=== PATIENT | female | born 1995 | race Hispanic/Latino ===

== ENCOUNTER 2024-08-01 12:21 | Emergency (ER) | payer OTHER ==
[~2024-08-01] VITALS: Ht 162.6 cm; Wt 97.3 kg
[2024-08-01 14:25] VITALS: BP 107/60
== END 2024-08-01 14:30 | disposition home or self-care (01) ==
LOC: ED 12:21
DX: S61.300A Unspecified open wound of right index finger with damage to nail, initial encounter (principal); W26.8XXA Contact with other sharp object(s), not elsewhere classified, initial encounter
CPT/HCPCS: 11730; 99282

== ENCOUNTER 2025-03-11 09:45 | Emergency (ER) | payer OTHER ==
[~2025-03-11] VITALS: Ht 162.6 cm; Wt 95.0 kg
[2025-03-11] MEDS ORDERED: CIPROFLOX-DEXA7.5 ML AS (10:12)
[2025-03-11 10:19] VITALS: BP 137/57
== END 2025-03-11 10:20 | disposition home or self-care (01) ==
LOC: ED 09:45
DX: H60.92 Unspecified otitis externa, left ear (principal)
CPT/HCPCS: 99282